=== PATIENT | female | born 2005 | race Caucasian/White ===

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

== ENCOUNTER 2023-02-08 20:35 | Emergency (ER) | payer MEDICAID ==
[~2023-02-08] VITALS: Ht 170 cm; Wt 86.1 kg
[~2023-02-08 20:35] MED LIST: METR-145 PO
--- NOTE | 2023-02-08 21:36 | ED EENT ---
History of Present Illness General Chief Complaint: Oral/Throat Problems Stated Complaint: COUGH/CONGESTION/SORE THROAT Nursing Triage Note: PT REPORTS SORE THROAT, CONGESTION, COUGH, AND WEAKNESS X 2 DAYS. PT WAS SUPPOSED TO GET TONSILS REMOVED 3 MO AGO BUT NEVER WENT TO HER APPT. Source: patient Exam Limitations: no limitations (TYLER MAYFIELD) History of Present Illness Date Seen by Provider: February 08, 2023 Time Seen by Provider: 21:31 Initial Comments Patient is a 17-year-old female presents ED with sore throat, nasal congestion, cough and weakness for the past 2 days. She states she had similar symptoms about 4 months ago. She states symptoms end up getting better with antibiotics. Symptoms started about 2 days ago. Sore throat difficulty swallowing. Difficulty breathing. She states she has nasal drainage and sinus pressure. Has been taken Mucinex without much improvement. She reports a wet cough without shortness of breath or wheezing. History of allergies and asthma. She reports vomiting mucus. Denies diarrhea, chest pain, shortness of breath, diarrhea, headache, dizziness. Difficulty swallowing. She was scheduled to follow-up for history of enlarged tonsils but never made her appointment. (TYLER MAYFIELD) Allergies and Home Medications Allergies Coded Allergies: No Known Drug Allergies (Unverified , 12/13/22) Patient Home Medication List Home Medication List Reviewed: Yes (TYLER MAYFIELD) Amoxicillin (Amoxicillin) 500 Mg Tablet, 500 MG PO BID Prescribed by: TRINITY OLVIEIRA on 02/08/23 215 Metronidazole (Metronidazole) 500 Mg Tablet, 500 MG PO BID Prescribed by: PAT KOCH on 12/13/22 1144 Metronidazole (Metronidazole) 500 Mg Tablet, 500 MG PO BID Prescribed by: PAT KOCH on 12/14/22 1237 Review of Systems Review of Systems Constitutional: No chills, No diaphoresis, No malaise, No weakness Eyes: Denies Blurred Vision, Denies Drainage, Denies Decreased Acuity Ears: Denies Dizziness, Denies Pain Nose: congestion Mouth: denies clots, denies loose teeth Throat: pain, swelling Respiratory: cough; No hemoptysis, No short of breath, No wheezing Cardiovascular: No chest pain Gastrointestinal: No abdominal pain, No diarrhea, No nausea; vomiting Musculoskeletal: No back pain, No joint pain Skin: No change in color Neurological: Denies Anxiety, Denies Depressed (TYLER MAYFIELD) All Other Systems Reviewed Negative Unless Noted: Yes (TYLER MAYFIELD) Physical Exam Vital Signs Vital Signs - First Documented 02/08/23 21:10 Temp 36.8 Pulse 105 Resp 18 B/P (MAP) 121/68 (85) Pulse Ox 96 O2 Delivery Room Air (BapulA [employer] DO) Height, Weight, BMI Height: '" Weight: lbs. oz. kg; 29.00 BMI Method: General Appearance: WD/WN, no apparent distress Eyes: bilateral eye normal inspection, bilateral eye PERRL, bilateral eye EOMI Ears: bilateral ear auricle normal, bilateral ear canal normal, bilateral ear TM normal Nose: sinus tenderness Mouth/Throat: other (Bilateral swollen tonsils. No uvula deviation. Very minimal tonsillar exudate. Cervical adenopathy. No stridor. 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 as tested, no motor/sensory deficits, alert, normal mood/affect, oriented x 3 Skin: normal color, warm/dry (TYLER MAYFIELD) Progress/Results/Core Measures Results/Orders Lab Results Laboratory Tests Test 02/08/23 21:15 Range/Units Influenza Type A (RT-PCR) Not Detected Not Detecte Influenza Type B (RT-PCR) Not Detected Not Detecte SARS-CoV-2 RNA (RT-PCR) Not Detected Not Detecte Group A Streptococcus Screen NEGATIVE NEGATIVE (ED JACKSONA [employer] DO) Vital Signs/I&O 02/08/23 02/08/23 21:10 22:17 Temp 36.8 Pulse 105 96 Resp 18 18 B/P (MAP) 121/68 (85) 127/76 Pulse Ox 96 96 O2 Delivery Room Air Room Air (MANUEL,JOSE [employer] DO) Blood Pressure Mean: 85 Departure Communication (PCP) History of tonsillitis. Patient was recommended follow-up with ENT but she has not followed up. Sore throat, weakness, cough, nasal congestion. On exam erythematous tonsils with small amount of exudate. Cervical adenopathy. Lung sounds clear bilateral. No stridor. Tolerate secretions. No muffling of the voice. Bilateral TMs clear. Strep, COVID influenza was ordered which were negative. No evidence suggesting pneumonia. She reports history of strep. She does have some sinus pressure. Symptoms may be more viral versus allergy. Recommend Zyrtec, Mucinex, Sudafed. Patient was given oral Decadron for enlarged tonsils. No evidence suggesting tonsillar abscess. No uvula deviation. Conservative treatment. If any worsening symptoms return back to ED. We will prescribe amoxicillin if throat pain worsens. She states she has a history of strep throat that typically starts with similar symptoms (TYLER MAYFIELD) Impression Primary Impression: Tonsillitis Disposition: HOME, SELF-CARE Condition: Stable Departure-Patient Inst. Decision time for Depature: 21:35 (TYLER MAYFIELD) Referrals: [facility],LOCAL PHYSICIAN (PCP) Primary Care Physician Patient Instructions: Sore Throat, Adult ED Add. Discharge Instructions: Recommend taking antibiotics as recurrent prescribed. May take Zyrtec and Mucinex to help with symptoms. Recommend following up with ENT for further evaluation All discharge instructions reviewed with patient and/or family. Voiced understanding. Scripts Amoxicillin (Amoxicillin) 500 Mg Tablet 500 MG PO BID for 10 Days, #20 TAB Prov: TYLER MAYFIELD 02/08/23 Work/School Note: Work Release Form Date Seen in the Emergency Department: February 08, 2023 Return to Work: February 10, 2023 ATTENDING PHYSICIAN NOTE: I WAS PHYSICALLY PRESENT ER PHYSICIAN, BUT I WAS NOT INVOLVED IN ANY DECISION MAKING OR ANY CARE OF THIS PATIENT, AND I AM NOT COLLABORATING PHYSICIAN. (JOSE JACKSON DO) TYLER MAYFIELD February 08, 2023 21:36 JOSE JACKSON DO February 09, 2023 01:00
[2023-02-08] MEDS ORDERED: AMOX500T2 PO (21:53)
[2023-02-08 22:17] VITALS: BP 127/76
== END 2023-02-08 22:20 | disposition home or self-care (01) ==
LOC: EDUNIT# 20:35 → ER 20:37
DX: J03.90 Acute tonsillitis, unspecified (principal); Z20.822 Contact with and (suspected) exposure to COVID-19
CPT/HCPCS: 87430; 87636; 99283

== ENCOUNTER 2023-02-16 21:47 | Emergency (ER) | payer MEDICAID ==
[~2023-02-16] VITALS: Ht 170 cm; Wt 86.1 kg
[~2023-02-16 21:47] MED LIST changes: +AMOX500T2 PO
[2023-02-16 22:44] LABS: BILIRUBIN,URINE NEGATIVE (NEGATIVE); CLARITY,URINE SL CLOUDY; COLOR,URINE YELLOW; GLUCOSE, URINE (UA) NEGATIVE (NEGATIVE); KETONES,URINE NEGATIVE (NEGATIVE); LEUKOCYTE ESTERASE ,URINE NEGATIVE (NEGATIVE); NITRITE,URINE NEGATIVE (NEGATIVE); PROTEIN,URINE NEGATIVE (NEGATIVE)
[2023-02-16 22:49] LABS: BASOPHILS # (AUTO) 0.1 10^3/uL (0.0-0.1); BASOPHILS % (AUTO) 1 % (0-10); EOSINOPHILS # (AUTO) 0.1 10^3/uL (0.0-0.3); EOSINOPHILS % (AUTO) 1 % (0-10); HEMATOCRIT 42 % (35-52); HEMOGLOBIN 13.9 g/dL (11.5-16.0); LYMPHOCYTES # (AUTO) 3.4 10^3/uL (1.0-4.0); LYMPHOCYTES % (AUTO) 39 % (12-44); MEAN CORPUSCULAR HEMOGLOBIN 27 pg (25-34); MEAN CORPUSCULAR HGB CONC 33 g/dL (32-36); MEAN CORPUSCULAR VOLUME 80 fL (80-99); MEAN PLATELET VOLUME 9.1 fL (9.0-12.2); MONOCYTES # (AUTO) 0.3 10^3/uL (0.0-1.0); MONOCYTES % (AUTO) 4 % (0-12); NEUTROPHILS % (AUTO) 56 % (42-75); PLATELET COUNT 407 10^3/uL (130-400); WHITE BLOOD COUNT 8.9 10^3/uL (4.3-11.0)
[2023-02-16 22:53] LABS: BACTERIA,URINE NEGATIVE /HPF
[2023-02-16 23:00] LABS: AMPHETAMINE SCREEN, URINE POSITIVE (NEGATIVE); BARBITURATE SCREEN URINE NEGATIVE (NEGATIVE); BENZODIAZEPINES SCREEN URINE NEGATIVE (NEGATIVE); CANNABINOID SCREEN, URINE POSITIVE (NEGATIVE); COCAINE SCREEN URINE NEGATIVE (NEGATIVE); METHADONE STAT NEGATIVE (NEGATIVE); OPIATE SCREEN URINE NEGATIVE (NEGATIVE); OXYCODONE STAT NEGATIVE (NEGATIVE); PROPOXYPHENE STAT NEGATIVE (NEGATIVE); TRICYCLIC ANTIDEPRESSANTS SCRE NEGATIVE (NEGATIVE)
[2023-02-16 23:03] LABS: ALBUMIN 4.4 GM/DL (3.2-4.5); CHLORIDE 107 MMOL/L (98-107); SODIUM 140 MMOL/L (135-145)
[2023-02-16 23:04] LABS: CALCIUM 10.1 MG/DL (8.5-10.1)
[2023-02-16 23:06] LABS: GLUCOSE 98 MG/DL (70-105); TOTAL PROTEIN 7.9 GM/DL (6.4-8.2)
[2023-02-16 23:07] LABS: BILIRUBIN,TOTAL 0.3 MG/DL (0.1-1.0); CARBON DIOXIDE 21 MMOL/L (21-32)
[2023-02-16 23:09] LABS: ALKALINE PHOSPHATASE 75 U/L (40-136); GFR ESTIMATED 109
[2023-02-16 23:11] LABS: BUN/CREATININE RATIO 14
[2023-02-16 23:12] LABS: ALANINE AMINOTRANSFERASE 26 U/L (0-55); SALICYLATE < 5.0 MG/DL (5.0-20.0)
[2023-02-16] MEDS ORDERED: OLANZapine 5 MG ODT (ZyPREXA ZYDIS) PO ONE (23:15)
[2023-02-16 23:18] LABS: ACETAMINOPHEN < 10 UG/ML (10-30)
[2023-02-16] MEDS ORDERED: diphenhydrAMINE 50 MG/ML INJ (BENADRYL) IM ONE (23:30)
[2023-02-16] MEDS ORDERED: HALOPERIDOL 5 MG/ML (HALDOL) VIAL IM ONE (23:30)
[2023-02-16] MEDS ORDERED: LORazepam INJ 2 MG/ML (ATIVAN) VIAL IM ONE (23:30)
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
[2023-02-19 12:30] VITALS: BP 106/68
== END 2023-02-19 12:30 | disposition home or self-care (01) ==
LOC: EDUNIT# 21:47 → ER 21:48
DX: R45.851 Suicidal ideations (principal); F15.90 Other stimulant use, unspecified, uncomplicated; F12.90 Cannabis use, unspecified, uncomplicated; E66.9 Obesity, unspecified; F17.210 Nicotine dependence, cigarettes, uncomplicated; Z68.29 Body mass index [BMI] 29.0-29.9, adult; Z28.310 Unvaccinated for COVID-19
CPT/HCPCS: 80053; 80306; 81000; 84703; 85025; 87636; 93005; 99283; G0480 ×3; 36415; 80320; 80329

== ENCOUNTER 2023-04-15 16:50 | Emergency (ER) | payer MEDICAID ==
[~2023-04-15] VITALS: Ht 165 cm; Wt 86.0 kg
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
[2023-04-15 17:22] VITALS: BP 116/105
== END 2023-04-15 17:22 | disposition home or self-care (01) ==
LOC: EDUNIT# 16:50 → ER 16:52
DX: S09.90XA Unspecified injury of head, initial encounter (principal); S80.11XA Contusion of right lower leg, initial encounter; S00.81XA Abrasion of other part of head, initial encounter; Z72.0 Tobacco use; Y04.0XXA Assault by unarmed brawl or fight, initial encounter
CPT/HCPCS: 99281

== ENCOUNTER 2023-07-22 01:44 | Emergency (ER) | payer MEDICAID ==
[2023-07-22 02:16] VITALS: BP 105/74
[2023-07-22 02:39] LABS: AMORPHOUS SEDIMENT,UR FEW AMOR PHOSPHATE /LPF; BILIRUBIN,URINE NEGATIVE (NEGATIVE); CLARITY,URINE CLEAR; COLOR,URINE YELLOW; GLUCOSE, URINE (UA) NEGATIVE (NEGATIVE); KETONES,URINE NEGATIVE (NEGATIVE); LEUKOCYTE ESTERASE ,URINE NEGATIVE (NEGATIVE); NITRITE,URINE NEGATIVE (NEGATIVE); PROTEIN,URINE NEGATIVE (NEGATIVE); RBC,URINE 0-2 /HPF
--- NOTE | 2023-07-22 02:39 | ED Abdominal Pain ---
General Chief Complaint: Abdominal/GI Problems Stated Complaint: ABD PX SINCE YESTERDAY AT 4AM Source of Information: Patient History of Present Illness Date Seen by Provider: Jul 22, 2023 Time Seen by Provider: 02:14 Initial Comments PT ARRIVES VIA POV WITH A MALE C/O LOW ABDOMINAL PAIN SINCE 0400 YESTERDAY MORNING PAIN COMES AND GOES, IT WAS GONE FOR MOST OF YESTERDAY, THEN CAME BACK AROUND 0030 PAIN IS GONE NOW NOTHING WORSENS PAIN PAIN IS IMPROVED WITH WALKING, LAYING FLAT ON HER STOMACH, RUBBING OR PUSHING ON HER STOMACH SHE HAS NOT TAKEN ANYTHING FOR PAIN HAD NAUSEA AND VOMITED X 1 YESTERDAY, NO NAUSEA NOW HAD NORMAL BM IN LAST 24 HOURS DOES HAVE SOME PAIN ON URINATION AT TIMES NO VAGINAL DISCHARGE OR PAIN WITH INTERCOURSE LMP 3 MONTHS AGO, HAS NEXPLANON IN PLACE NO HISTORY OF SIMILAR NO PRIOR ABDOMINAL SURGERIES 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 PT DOES NOT GO TO SCHOOL AND SHE DOES NOT WORK. PCP: [facility] Allergies and Home Medications Allergies Coded Allergies: No Known Drug Allergies (Unverified , 12/13/22) Review of Systems Review of Systems Constitutional: no symptoms reported Respiratory: No Symptoms Reported Cardiovascular: No Symptoms Reported Gastrointestinal: See HPI, Abdominal Pain, Nausea, Vomiting Genitourinary: See HPI Musculoskeletal: no symptoms reported; No back pain Skin: no symptoms reported Psychiatric/Neurological: No Symptoms Reported Endocrine: No Symptoms Reported Hematologic/Lymphatic: No Symptoms Reported Past Dwgglhx-Fymydr-Wftlmq Hx Patient Social History Tobacco Use?: Yes Tobacco type used: Cigarettes Smoking Status: Current Everyday Smoker Use of E-Cig and/or Vaping dev: Yes E-Cig or Vaping type used: Marijuana Use of E-Cig and/or Vaping Kadeem: Current Everyday User Substance use?: No Alcohol Use?: Yes Alcohol Frequency: Once in a while Immunizations Up To Date First/Initial COVID19 Vaccinat: NA Second COVID19 Vaccination Kj: NA Third COVID19 Vaccination Date: NA Past Medical History Surgery/Hospitalization HX: DENIES Surgeries: No Respiratory: No Cardiac: No Neurological: No : No Reproductive Disorders: No Sexually Transmitted Disease: Yes (TRICHOMONAS) Genitourinary: No Gastrointestinal: No Musculoskeletal: No Endocrine: No HEENT: No Cancer: No Psychosocial: Yes (SUBSTANCE ABUSE, SUICIDAL IDEATIONS) Integumentary: No Blood Disorders: No Physical Exam Vital Signs Capillary Refill : Height/Weight/BMI Height: '" Weight: lbs. oz. kg; 31.00 BMI Method: General Appearance: WD/WN, no apparent distress, other (WALKS UPRIGHT AND MOVES WITHOUT DIFFICULTY, SMILING AND GIGGLING, AND PLAYING ON PHONE ) Respiratory: normal breath sounds, no respiratory distress, no accessory muscle use Cardiovascular: regular rate, rhythm, no murmur Gastrointestinal: normal bowel sounds, soft, no organomegaly; No distended, No guarding, No rebound; tenderness (SUPRAPUBIC TENDERNESS); No hernia, No mass Extremities: normal inspection Back: no CVA tenderness Neurologic/Psychiatric: guest service aide II-XII nml as tested, no motor/sensory deficits, alert, normal mood/affect, oriented x 3 Skin: normal color, warm/dry; No rash Progress/Results/Core Measures Results/Orders Lab Results Laboratory Tests Test 07/22/23 02:24 Range/Units Urine Color YELLOW Urine Clarity CLEAR Urine pH 7.0 5-9 Urine Specific [place] 1.025 H 1.016-1.022 Urine Protein NEGATIVE NEGATIVE Urine Glucose (UA) NEGATIVE NEGATIVE Urine Ketones NEGATIVE NEGATIVE Urine Nitrite NEGATIVE NEGATIVE Urine Bilirubin NEGATIVE NEGATIVE Urine Urobilinogen 0.2 < = 1.0 MG/DL Urine Leukocyte Esterase NEGATIVE NEGATIVE Urine RBC (Auto) NEGATIVE NEGATIVE Urine RBC 0-2 /HPF Urine WBC RARE /HPF Urine Squamous Epithelial Cells 5-10 /HPF Urine Crystals PRESENT H /LPF Urine Amorphous Sediment FEW CODY PHOSPHATE H /LPF Urine Bacteria TRACE /HPF Urine Casts NONE /LPF Urine Mucus NEGATIVE /LPF Urine Culture Indicated NO My Orders Orders - JOSE JACKSON DO Urine Bedside (07/22/23 02:16) Ua Culture If Indicated (07/22/23 02:16) Drug Screen Stat (Urine) (07/22/23 02:40) Ed Iv/Invasive Line Start (07/22/23 02:44) Ct Abd/Pelv W (Appendicitis) (07/22/23 02:44) Amylase (07/22/23 02:44) Cbc And Automated Diff (07/22/23 02:44) Comprehensive Metabolic Panel (07/22/23 02:44) Hs C Reactive Protein (07/22/23 02:44) Lipase (07/22/23 02:44) Erythrocyte Sedimentation Rate (07/22/23 02:44) Progress Progress Note : Progress Note 3054--PT HAS SIGNED OUT AMA--STATES "HER MOM IS JUST GOING TO MAKE AN APPOINTMENT"--UA IS PENDING Departure Impression Primary Impression: Left against medical advice Disposition: 07 AGAINST MEDICAL ADVICE Condition: Against Medical Advice Departure-Patient Inst. Referrals: NO,LOCAL PHYSICIAN (PCP/Family) Primary Care Physician JOSE JACKSON DO Jul 22, 2023 02:39
[2023-07-22 02:40] LABS: BACTERIA,URINE TRACE /HPF; WBC,URINE RARE /HPF
== END 2023-07-22 02:44 | disposition left against medical advice (07) ==
LOC: EDUNIT# 01:44 → ER 01:48
DX: R10.30 Lower abdominal pain, unspecified (principal); R11.10 Vomiting, unspecified; F17.290 Nicotine dependence, other tobacco product, uncomplicated; F17.210 Nicotine dependence, cigarettes, uncomplicated
CPT/HCPCS: 81000; 84703; 99282